=== PATIENT | female | born 1995 | race African-American/Black ===

== ENCOUNTER 2022-10-25 13:19 | Outpatient (CLI) | payer OTHER | END 2022-10-25 13:20 | disposition home or self-care (01) | LOC: CSHULT 13:19 | PROVIDERS: ATTEND Family Medicine | DX: Z34.82 Encounter for supervision of other normal pregnancy, second trimester (principal); Z3A.21 21 weeks gestation of pregnancy | CPT/HCPCS: 76805 ==

== ENCOUNTER 2022-11-02 10:43 | Day surgery (SDC) | payer OTHER ==
[2022-11-02] MEDS ORDERED: Acetaminophen 500 MG TAB PO SCH (11:30)
[2022-11-02 11:55] LABS: SARS-CoV-2 NAA Rapid Test Not Detected (NotDetected)
== END 2022-11-02 12:10 | disposition home or self-care (01) ==
LOC: CSHLD/OP 10:43
PROVIDERS: ATTEND Family Medicine
DX: O26.892 Other specified pregnancy related conditions, second trimester (principal); M54.9 Dorsalgia, unspecified; O99.512 Diseases of the respiratory system complicating pregnancy, second trimester; J02.9 Acute pharyngitis, unspecified; Z3A.23 23 weeks gestation of pregnancy; Z79.899 Other long term (current) drug therapy; Z20.822 Contact with and (suspected) exposure to COVID-19; Z98.890 Other specified postprocedural states
CPT/HCPCS: 99282

== ENCOUNTER 2022-12-21 10:58 | Day surgery (SDC) | payer OTHER ==
[2022-12-21 11:41] VITALS: BMI 35.8
== END 2022-12-21 13:40 | disposition home or self-care (01) ==
LOC: CSHLD/OP 10:58
PROVIDERS: ATTEND Family Medicine
DX: O36.8130 Decreased fetal movements, third trimester, not applicable or unspecified (principal); O09.13 Supervision of pregnancy with history of ectopic pregnancy, third trimester; Z79.899 Other long term (current) drug therapy; Z3A.30 30 weeks gestation of pregnancy
CPT/HCPCS: 76819; 99282

== ENCOUNTER 2023-01-18 18:54 | Day surgery (SDC) | payer OTHER ==
[2023-01-18] MEDS ORDERED: hydrALAZINE 20 MG/ML VIAL SLOW IVP PRN (20:29)
[2023-01-18 20:49] LABS: Bilirubin Neg (Negative); Blood, Urine 25 (Negative); Clarity Clear (Clear); Glucose, Urine (Dipstick) Normal (Negative); Ketone, Urine Negative (Negative); Leukocyte Negative (Negative); Nitrite Negative (Negative); Protein, Urine (Dipstick) 15 mg/dl (Neg-Trace); Urobilinogen Normal mg/dL (Less than 2)
[2023-01-18 20:50] VITALS: BMI 32.3
[2023-01-18 21:43] LABS: CAUTI Indications for Culture Pelvic or flank pain; RBC/HPF 0-3 HPF (0-3)
[2023-01-18 21:44] LABS: Bacteria/HPF 1+ HPF (None Seen)
[2023-01-18 21:45] LABS: Urine Culture Reflex No No
== END 2023-01-18 21:43 | disposition home or self-care (01) ==
LOC: CSHLD/OP 18:54
PROVIDERS: ATTEND Family Medicine
DX: O26.893 Other specified pregnancy related conditions, third trimester (principal); R10.2 Pelvic and perineal pain; Z79.899 Other long term (current) drug therapy; Z79.82 Long term (current) use of aspirin; Z3A.34 34 weeks gestation of pregnancy
CPT/HCPCS: 81001; 99282

== ENCOUNTER 2023-01-24 20:34 | Day surgery (SDC) | payer OTHER ==
[2023-01-24] MEDS ORDERED: hydrALAZINE 20 MG/ML VIAL SLOW IVP PRN (21:10)
[2023-01-24 21:44] LABS: Bilirubin Neg (Negative); Blood, Urine 50 (Negative); Clarity Cloudy (Clear); Glucose, Urine (Dipstick) Normal (Negative); Ketone, Urine 5 mg/dL (Negative); Leukocyte 100 (Negative); Nitrite Negative (Negative); Protein, Urine (Dipstick) 100 mg/dl (Neg-Trace)
[2023-01-24 21:54] LABS: Bacteria/HPF 2+ HPF (None Seen)
== END 2023-01-24 22:21 | disposition home or self-care (01) ==
LOC: CSHLD/OP 20:34
PROVIDERS: ATTEND Family Medicine
DX: O26.893 Other specified pregnancy related conditions, third trimester (principal); R10.2 Pelvic and perineal pain; O47.03 False labor before 37 completed weeks of gestation, third trimester; O99.013 Anemia complicating pregnancy, third trimester; D64.9 Anemia, unspecified; O23.43 Unspecified infection of urinary tract in pregnancy, third trimester; N39.0 Urinary tract infection, site not specified; Z79.899 Other long term (current) drug therapy; Z3A.35 35 weeks gestation of pregnancy
CPT/HCPCS: 81003; 81015

== ENCOUNTER 2023-02-02 13:31 | Day surgery (SDC) | payer OTHER ==
[2023-02-02 13:51] VITALS: BMI 33.0
[2023-02-02] MEDS ORDERED: hydrALAZINE 20 MG/ML VIAL SLOW IVP PRN (14:26)
== END 2023-02-02 15:10 | disposition left against medical advice (07) ==
LOC: CSHLD/OP 13:31
PROVIDERS: ATTEND Family Medicine
DX: O47.03 False labor before 37 completed weeks of gestation, third trimester (principal); Z79.899 Other long term (current) drug therapy; Z3A.36 36 weeks gestation of pregnancy

== ENCOUNTER 2023-02-12 13:16 | Day surgery (SDC) | payer OTHER ==
[2023-02-12 13:49] VITALS: BMI 33.0
== END 2023-02-12 14:50 | disposition home or self-care (01) ==
LOC: CSHLD/OP 13:16
PROVIDERS: ATTEND Family Medicine
DX: O47.03 False labor before 37 completed weeks of gestation, third trimester (principal); Z3A.36 36 weeks gestation of pregnancy
CPT/HCPCS: 99282

== ENCOUNTER 2023-02-14 16:12 | Day surgery (SDC) | payer OTHER ==
[2023-02-14 16:32] VITALS: BMI 33.4
[2023-02-14] MEDS ORDERED: hydrALAZINE 20 MG/ML VIAL SLOW IVP PRN (17:06)
== END 2023-02-14 17:05 | disposition home or self-care (01) ==
LOC: CSHLD/OP 16:12
PROVIDERS: ATTEND Family Medicine
DX: O47.1 False labor at or after 37 completed weeks of gestation (principal); O99.891 Other specified diseases and conditions complicating pregnancy; R19.7 Diarrhea, unspecified; Z3A.37 37 weeks gestation of pregnancy
CPT/HCPCS: 99281

== ENCOUNTER 2025-06-24 11:05 | Day surgery (SDC) | payer OTHER ==
[2025-06-24 11:33] VITALS: BMI 32.4
[2025-06-24 12:34] LABS: Glucose, Urine (Dipstick) Normal (Negative); Leukocyte Negative (Negative); Protein, Urine (Dipstick) 500 mg/dl (Neg-Trace); Specific Gravity, Urine 1.015 (1.005-1.030)
[2025-06-24 12:56] LABS: Bacteria/HPF 1+ HPF (None Seen); CAUTI Indications for Culture Pregnancy; WBC/HPF 0-3 HPF (0-3)
[2025-06-24 12:57] LABS: Mucous/LPF 1+ LPF (<2+)
[2025-06-24 12:58] LABS: Urine Culture Reflex Yes Yes
== END 2025-06-24 13:17 | disposition home or self-care (01) ==
LOC: CSHLD/OP 11:05
PROVIDERS: ATTEND Family Medicine
DX: O12.12 Gestational proteinuria, second trimester (principal); Z3A.23 23 weeks gestation of pregnancy
CPT/HCPCS: 81001; 87077; 87086; 99284

== ENCOUNTER 2025-08-14 21:42 | Day surgery (SDC) | payer OTHER ==
[2025-08-14 22:52] VITALS: BMI 32.8
[2025-08-14] MEDS ORDERED: hydrALAZINE 20 MG/ML VIAL SLOW IVP PRN (22:58)
[2025-08-14] MEDS ORDERED: Ondansetron PF 4 MG/2 ML Vial IVP PRN (22:59)
[2025-08-14 23:07] LABS: Glucose, Urine (Dipstick) Normal (Negative); Leukocyte Negative (Negative); Protein, Urine (Dipstick) 100 mg/dl (Neg-Trace); Specific Gravity, Urine 1.020 (1.005-1.030)
[2025-08-14] MEDS: Acetaminophen 500 MG TAB PO SCH (23:12)
[2025-08-14 23:25] LABS: Bacteria/HPF Rare-Few HPF (None Seen); CAUTI Indications for Culture Pregnancy; RBC/HPF 0-3 HPF (0-3); WBC/HPF 0-3 HPF (0-3)
[2025-08-15 01:15] LABS: Urine Culture Reflex Yes Yes
== END 2025-08-15 01:03 | disposition home or self-care (01) ==
LOC: CSHLD/OP 21:42
PROVIDERS: ATTEND Family Medicine
DX: O99.891 Other specified diseases and conditions complicating pregnancy (principal); R10.9 Unspecified abdominal pain; R11.0 Nausea; Z3A.30 30 weeks gestation of pregnancy; O34.211 Maternal care for low transverse scar from previous cesarean delivery; Z79.899 Other long term (current) drug therapy
CPT/HCPCS: 81001; 87086

== ENCOUNTER 2025-10-05 23:06 | Day surgery (SDC) | payer OTHER ==
[2025-10-06] MEDS ORDERED: hydrALAZINE 20 MG/ML VIAL SLOW IVP PRN
[2025-10-06 00:06] VITALS: BMI 35.5
[2025-10-06 01:35] LABS: Glucose, Urine (Dipstick) Normal (Negative); Leukocyte Negative (Negative); Protein, Urine (Dipstick) 100 mg/dl (Neg-Trace); Specific Gravity, Urine 1.015 (1.005-1.030)
[2025-10-06 01:42] LABS: WBC/HPF 0-3 HPF (0-3)
[2025-10-06 01:43] LABS: Bacteria/HPF 1+ HPF (None Seen)
== END 2025-10-06 01:57 | disposition home or self-care (01) ==
LOC: CSHLD/OP 23:06
PROVIDERS: ATTEND Family Medicine
DX: O47.1 False labor at or after 37 completed weeks of gestation (principal); Z3A.37 37 weeks gestation of pregnancy; Z87.891 Personal history of nicotine dependence
CPT/HCPCS: 81003; 81015